=== PATIENT | male | born 1955 | race Caucasian/White ===

== ENCOUNTER 2019-05-22 13:06 | Day surgery (SDC) | payer MEDICARE, BC ==
[~2019-05-22] VITALS: Ht 175.3 cm; Wt 93.4 kg
[~2019-05-22 13:06] MED LIST: ALPR1 PO; BUPR150ER PO
--- NOTE | 2019-05-22 14:42 | NUR ---
05/22/19 1442 Ida Cortez SHOWED PT HOW TO USE INCENTIVE SPIROMETER. PT UNDERSTANDS AND SHOWS HOW TO USE
--- NOTE | 2019-05-22 17:19 | NUR ---
05/22/19 171 Emi Quintanilla PT. VERBALIZES HAVING SOME BURING MID CHEST. PT. VERBALZIES DRKartik SAID HE MAY FEEL THIS. WILL GET PT. SOMETHING TO DRINK WHEN IN [place]. PT. VERBALIZES HAVING A SORE THROAT.
--- NOTE | 2019-05-22 18:17 | NUR ---
05/22/191816 Emi Quintanilla DISCHARGE INSTRUCTIONS GIVEN BY [facility].MILVIA & FRANCO RN TO PT. & HIS EX- WITH UNDERSTANDING. PT. VERBALIZES HE MAY NOT HAVE A PLUG IN FOR HIS POLAR SHAYY SO INSTRUCTED PT. ALSO ON USING ICE PACKS.
== END 2019-05-22 18:59 | disposition home or self-care (01) ==
LOC: ORSCSDS 13:06
PROVIDERS: Orthopaedic Surgery
PROC: 0LQ24ZZ Repair Left Shoulder Tendon, Percutaneous Endoscopic Approach (ICD-10-PCS; principal; 2019-05-22 15:15)
PROC: 0LS24ZZ Reposition Left Shoulder Tendon, Percutaneous Endoscopic Approach (ICD-10-PCS; principal; 2019-05-22 15:15)
PROC: 0RNK4ZZ Release Left Shoulder Joint, Percutaneous Endoscopic Approach (ICD-10-PCS; principal; 2019-05-22 15:15)
DX: M75.122 Complete rotator cuff tear or rupture of left shoulder, not specified as traumatic (principal); M75.22 Bicipital tendinitis, left shoulder; M75.52 Bursitis of left shoulder; M79.7 Fibromyalgia; D89.89 Other specified disorders involving the immune mechanism, not elsewhere classified; G47.33 Obstructive sleep apnea (adult) (pediatric); F41.8 Other specified anxiety disorders; Z79.899 Other long term (current) drug therapy; Z87.891 Personal history of nicotine dependence
CPT/HCPCS: C1713; J0171; J0690; J1100; J2250; J2370; J2405; J2704; J3010; J7120

== ENCOUNTER → 2020-05-27 | Outpatient (CLI) | payer MEDICARE, BC | LOC: LAB 15:00 → LAB SHORT 15:00 | DX: L82.0 Inflamed seborrheic keratosis (principal); L02.222 Furuncle of back [any part, except buttock and flank]; R20.8 Other disturbances of skin sensation; L53.8 Other specified erythematous conditions; L29.8 Other pruritus; D48.5 Neoplasm of uncertain behavior of skin; R23.3 Spontaneous ecchymoses; B35.3 Tinea pedis; B35.1 Tinea unguium; Z79.899 Other long term (current) drug therapy | CPT/HCPCS: 87070; 87205 ==

== ENCOUNTER 2021-11-29 05:56 | Day surgery (SDC) | payer MEDICARE, BC ==
[~2021-11-29] VITALS: Ht 175.3 cm; Wt 97.2 kg
[~2021-11-29 05:56] MED LIST changes: +Ativan1 MG PO; +IRBE150 PO; +OMEP20ER PO; +PROP60 PO; +ROSU10TA PO; +TIOT18 INH
--- NOTE | 2021-11-29 06:57 | NUR ---
History, Chart, Medications and Allergies reviewed before start of procedure. Lungs clear T/O to Auscultation. Patient States Post-Procedure ride home has been arranged.
[2021-11-29 07:17] LABS: Bun/Creatinine Ratio 14.7 (12.0-20.0); Calcium, Blood 9.1 mg/dL (8.5-10.1); Creatinine, Blood 1.16 mg/dL (0.60-1.20)
--- NOTE | 2021-11-29 09:48 | NUR ---
report to Demetrius barlow to assume care. Patient stable without out complaints. sleeping unless aroused
--- NOTE | 2021-11-29 10:00 | NUR ---
INTO STEP RECIEVED REPORT VSS GIVEN JUICE AT THIS TIME PER REQUEST.
--- NOTE | 2021-11-29 10:44 | NUR ---
Discharge instructions reviewed with patient. Patient verbalizes understanding. Copy given to patient to take home. Patient States Post-Procedure ride home has been arranged. Discharged via wheelchair to private car for ride home.
== END 2021-11-29 23:57 | disposition home or self-care (01) ==
LOC: ORSCMMR 05:56
PROVIDERS: Student in an Organized Health Care Education/Training Program; Surgery
PROC: 0JB70ZX Excision of Back Subcutaneous Tissue and Fascia, Open Approach, Diagnostic (ICD-10-PCS; principal; 2021-11-29 07:30)
PROC: 0JB50ZZ Excision of Left Neck Subcutaneous Tissue and Fascia, Open Approach (ICD-10-PCS; principal; 2021-11-29 07:30)
DX: D17.0 Benign lipomatous neoplasm of skin and subcutaneous tissue of head, face and neck (principal); L72.0 Epidermal cyst; I10 Essential (primary) hypertension; G47.33 Obstructive sleep apnea (adult) (pediatric); F31.9 Bipolar disorder, unspecified; M79.7 Fibromyalgia; K21.9 Gastro-esophageal reflux disease without esophagitis; Z79.899 Other long term (current) drug therapy
CPT/HCPCS: 80048; 88304; 93005; 93010; A9270; J0690; J1100; J1885; J2370; J2405; J2704; J2795; J3010; J7120